=== PATIENT | male | born 1975 | race Caucasian/White ===

== ENCOUNTER 2019-11-01 17:52 | Emergency (ER) | payer OTHER ==
[~2019-11-01] VITALS: Ht 165.1 cm; Wt 64.9 kg
[2019-11-01 17:55] VITALS: BP 101/61
--- NOTE | 2019-11-01 18:02 | NUR ---
PT TO BED 7 WITH STEADY GAIT
--- NOTE | 2019-11-01 18:09 | NUR ---
PT UNABLE TO GIVE UA AT THIS TIME.
--- NOTE | 2019-11-01 18:09 | NUR ---
EMT AT BEDSIDE PERFORMING EKG.
--- NOTE | 2019-11-01 18:12 | NUR ---
44 Y/O M C/O GENERALIZED WEAKNESS WITH PAIN 8/10 INTERMITENT THROUGHOUT HIS BODY X1 DAY. PT DENIES N/V/D. PT STATES HE HASN'T EATEN TODAY. PT NEUROLOGICAL EXAM WNL. PT PUT IN GOWN, FRIEND AT BEDSIDE. BED LOWERED SIDE RAIL X [address] [place]
[2019-11-01] MEDS ORDERED: NACL 0.9% 1,000 ML IV ONE (18:15)
[2019-11-01 18:32] LABS: BASOPHILS % (AUTO) 0.2 % (0.0-2.0); EOSINOPHILS % (AUTO) 0.1 % (0.0-4.0); HEMATOCRIT 38.8 % (36-52); HEMOGLOBIN 12.7 g/dL (12.0-18.0); LYMPHOCYTES # (AUTO) 1.2 K/uL (2.0-11.5); LYMPHOCYTES % (AUTO) 15.4 % (20.5-51.1); MEAN CORPUSCULAR HEMOGLOBIN 30 pg (27-31); MEAN CORPUSCULAR HGB CONC 33 g/dL (33-37); MEAN CORPUSCULAR VOLUME 92.6 fL (80-94); MONOCYTES # (AUTO) 0.6 K/uL (0.8-1.0); MONOCYTES % (AUTO) 7.5 % (1.7-9.3); NEUTROPHILS # (AUTO) 5.8 K/uL (1.8-7.7); NEUTROPHILS % (AUTO) 76.8 % (42.2-75.2); PLATELET COUNT (AUTO) 274 K/uL (140-450); RED BLOOD CELL COUNT(AUTO) 4.19 MIL/uL (4.20-6.10); RED CELL DISTRIBUTION WIDTH 13.2 % (11.6-13.7); WHITE BLOOD COUNT (AUTO) 7.6 K/uL (4.8-10.8)
[2019-11-01 19:05] LABS: ALBUMIN 4.3 g/dL (3.4-5.0); ASPARTATE AMINOTRANSFERASE 12 U/L (15-37); CHLORIDE 99 mmol/L (98-107); GFR ARICAN-AMERICAN 105 mL/min (>90); GLUCOSE 137 mg/dL (74-106); POTASSIUM 3.5 mmol/L (3.5-5.1); SODIUM SERUM 139 mmol/L (136-145); TOTAL BILIRUBIN 0.7 mg/dL (0.0-1.0); UREA NITROGEN, BLOOD 14 mg/dL (7-18)
[2019-11-01 19:06] LABS: ACETAMINOPHEN < 0.5 ug/ml (10-30); ANION GAP 13.4 (8-16); CARBON DIOXIDE 30.1 mmol/L (21-32); SALICYLATE < 2.8 mg/dL (2.8-20.0)
--- NOTE | 2019-11-01 19:06 | NUR ---
Dr. Kirkland examining patient.
[2019-11-01] MEDS ORDERED: KETOROLAC 30 MG/ML VIAL IVP ONE (19:25)
[2019-11-01 19:57] LABS: BARBITURATE, URINE NEG. ng/ml (NEG <=200); BENZODIAZEPINE, URINE NEG. ng/mL (NEG <=200); CANNABINOID, URINE NEG. ng/mL (NEG <=50); COCAINE, URINE NEG. ng/mL (NEG <=300); OPIATE, URINE NEG. ng/mL (NEG <=2000); PHENCYCLIDINE SCREEN,URINE NEG. ng/mL (NEG <=25)
--- NOTE | 2019-11-01 19:59 | NUR ---
PT RESTING COMFORTABLY, VSS. FRIEND AT BEDSIDE. GAVE PT A BLANKET.
--- NOTE | 2019-11-01 20:17 | NUR ---
RADIOLOGY AT BEDSIDE PERFORMING ORDERED TEST.
[2019-11-01 21:18] VITALS: BP 112/72
== END 2019-11-01 21:14 | disposition home or self-care (01) ==
LOC: MED 17:52
DX: M79.10 Myalgia, unspecified site (principal); R53.1 Weakness
CPT/HCPCS: 36415; 71045; 80053; 80305; 81002; 85025; 93005; 96374; 99284; G0480; G0482; J1885; J7030; Q0092